=== PATIENT | female | born 1985 | race Caucasian/White ===

== ENCOUNTER 2022-04-09 16:41 | Outpatient (CLI) | payer OTHER, SELFPAY ==
[2022-04-09 17:18] LABS: Basophils Absolute Auto 0.1 K/mm3 (0.0-0.1); Basophils Percent Auto 0.5 % (0.2-1.2); Eosinophils Absolute Auto 0.2 K/mm3 (0-0.3); Eosinophils Percent Auto 1.8 % (0-4.4); Hematocrit 41.6 % (37.0-47.0); Hemoglobin 13.5 g/dL (12.0-15.0); Immature Granulocyte Absolute 0.04 K/mm3 (0.00-0.031); Immature Granulocyte Percent A 0.3 % (0-0.5); Lymphocytes Absolute Auto 2.94 K/mm3 (0.9-3.2); Lymphocytes Percent Auto 25.2 % (18.3-44.2); Mean Corpuscular HGB Conc 32.5 g/dl (32-36); Mean Corpuscular Hemoglobin 29.4 pg (26-34); Mean Corpuscular Volume 90.6 fl (80-100); Mean Platelet Volume 11.1 fl (7.4-10.4); Monocytes Absolute Auto 0.7 K/mm3 (0.1-0.6); Monocytes Percent Auto 5.7 % (2.6-8.5); Neutrophils Absolute Auto 7.8 K/mm3 (1.3-6.7); Neutrophils Percent Auto 66.5 % (45.5-73.1); Platelet Count Result 333 k/mm3 (150-375); Red Blood Count 4.59 M/mm3 (4.2-5.4); Red Cell Distribution Width 12.4 % (11.5-14.5); White Blood Count 11.7 K/mm3 (4.5-10.0)
[2022-04-09 17:30] LABS: Alanine Aminotransferase 21 U/L (6-35); Albumin Level 4.1 g/dL (3.5-5.1); Alkaline Phosphatase 54 U/L (38-126); Anion Gap 10 mmol/L (8-16); Aspartate Amino Transferase 22 U/L (14-36); Bilirubin,Total 0.2 mg/dL (0.2-1.3); Blood Urea Nitrogen 12 mg/dL (7-17); Calcium 8.6 mg/dL (8.4-10.2); Carbon Dioxide 25 mmol/L (22-30); Chloride 105 mmol/L (98-107); Estimated Glomerular Filt Rate > 60; Glucose 101 mg/dL (65-110); Potassium 3.9 mmol/L (3.4-5.0); Sodium 140 mmol/L (137-145)
[2022-04-09 17:56] LABS: Free T4 Free Thyroxine 0.95 ng/mL (0.78-2.19)
== END 2022-04-09 16:42 | disposition home or self-care (01) ==
PROVIDERS: PCP Family Medicine; Visit Provider Nurse Practitioner Gerontology
DX: E04.1 Nontoxic single thyroid nodule (principal); R10.9 Unspecified abdominal pain
CPT/HCPCS: 36415; 80053; 84439; 84443; 84480; 85025

== ENCOUNTER → 2022-04-10 08:57 | Outpatient (CLI) | payer OTHER, SELFPAY ==
--- NOTE | ~2022-04-10 | CT_ITS ---
EXAMINATION: CT abdomen pelvis w con DATE: 04/10/2022 10:00 INDICATION: Mid right abdominal pain for 3 days TECHNIQUE: Computed tomography (CT) of the abdomen and pelvis was performed with 100 CC Omnipaque 350 intravenous contrast. Automated exposure control and iterative reconstruction technique were employe d. Exam dose: 875.40 mGy-cm total exam DLP. COMPARISON: None. FINDINGS: Calcified small middle lobe granuloma, benign. The lung bases are clear of infiltrate or co nsolidation. Normal heart size. No pericardial or pleural effusion. 5 mm hypoattenuating lesion of the lateral segment of the left hepatic lobe, too small to definitivel y characterize, most likely a small cyst benign hamartoma. No other hepatic space-occupying mass lesi on is detected. The gallbladder is unremarkable. No bile duct or pancreatic duct dilatation, pancreat ic mass lesion or calcification. Normal splenic size. Normal morphology of the adrenal glands. No renal mass lesion or urinary tract calculus or hydroureteronephrosis. There is moderate diffuse thickening of the urinary bladder wall; cystitis is not excluded. The uteru s and adnexal areas are unremarkable. Normal caliber of the abdominal aorta. No intraperitoneal or retroperitoneal or pelvic mass lesion or adenopathy is detected, with the exception of several lower quadrant right mesenteric lymph nodes me asuring up to 6.8 x 11 mm, which may be due to mesenteric adenitis. No ascites. Minimal colonic diverticulosis at splenic flexure. No CT evidence of diverticulitis. Normal appendix. No bowel obstruction, bowel wall thickening, pneumatosis or intraperitoneal free air. Small fat-containing umbilical hernia. No suspicious osteolytic or osteoblastic lesions. IMPRESSION: Several up to 6.8 x 11 mm right lower quadrant mesenteric lymph nodes, which may be due to mesenteric adenitis Normal appendix Minimal colonic diverticulosis; no evidence of diverticulitis Diffuse bladder wall thickening; cystitis is not excluded Reviewed, dictated and finalized at [facility]. Reviewed, dictated and finalized at location B. [facility] RADIO IMPRESSION: Several up to 6.8 x 11 mm right lower quadrant mesenteric lymph no martine, which may be due to mesenteric adenitis Normal appendix Minimal colonic diverticulosis; no evidence of diverticulitis Diffuse bladder wall thickening; cystitis is not excluded
== END ==
PROVIDERS: PCP Family Medicine; Visit Provider Nurse Practitioner Gerontology
DX: R10.9 Unspecified abdominal pain (principal)
CPT/HCPCS: 74177; Q9967

== ENCOUNTER 2022-07-24 08:44 | Outpatient (CLI) | payer OTHER, SELFPAY ==
--- NOTE | ~2022-07-24 | US_ITS ---
US thyroid INDICATION: Nontoxic thyroid nodule TECHNIQUE: Real-time sonographic images of the thyroid gland were obtained. COMPARISON: No prior studies for comparison. FINDINGS: The right thyroid lobe measures 4.8 x 1.2 x 1.3 cm. The left thyroid lobe measures 5.4 x 1 .2 x 10.5 cm. There is normal echotexture and echogenicity throughout the thyroid gland. Inferior asp ect of the right thyroid lobe there is a hypoechoic nodule which is solid, hypoechoic, wider than jamie l, smoothly marginated with macrocalcifications measuring 6 x 5 x 5 mm, TR 4. No mass identified in t he left lobe. Normal vascular flow is present. IMPRESSION: 1. Small 6 mm right thyroid nodule, TR 4. No follow-up required. Reviewed, dictated and finalized at location L. [facility] MOLDER
== END 2022-07-24 08:45 | disposition home or self-care (01) ==
PROVIDERS: PCP Family Medicine; Visit Provider Nurse Practitioner Gerontology
DX: E04.1 Nontoxic single thyroid nodule (principal)
CPT/HCPCS: 76536

== ENCOUNTER 2023-03-24 08:03 | Outpatient (CLI) | payer BC, SELFPAY ==
--- NOTE | ~2023-03-24 | XR_ITS ---
XR ankle LT min 3V DATE: 03/24/2023 08:24 INDICATION: Left ankle injury TECHNIQUE: 4 views COMPARISON: None FINDINGS: No fracture or dislocation of the ankle or disruption of the ankle mortise. No periosteal r eaction or bone destruction. IMPRESSION: No fracture or dislocation Reviewed, dictated and finalized at location L. IMPRESSION: No fracture or dislocation
--- NOTE | ~2023-03-24 | XR_ITS ---
XR foot LT min 3V DATE: 03/24/2023 08:24 INDICATION: Left ankle and foot injury TECHNIQUE: 4 views COMPARISON: None FINDINGS: No fracture or dislocation, periosteal reaction or bone destruction. IMPRESSION: Negative Reviewed, dictated and finalized at location L. IMPRESSION: Negative
== END 2023-03-24 08:04 ==
LOC: MICIMG 08:04
PROVIDERS: PCP Physician Assistant; Visit Provider Physician Assistant
DX: S99.912A Unspecified injury of left ankle, initial encounter (principal); M79.672 Pain in left foot
CPT/HCPCS: 73610; 73630

== ENCOUNTER 2024-09-27 06:49 | Outpatient (CLI) | payer BC, SELFPAY ==
--- OUTSIDE RECORDS SUMMARY | 2024-09-27 06:53 | XMS_ITS | Clinical Summary ---
Author Organization [facility] Address [address] [place] [id number] Care Team Providers Care Collections Agent Name Role Phone Sarah Rosales MD Primary Care Provider Social History Tobacco Use Types Packs/Day Years Used Date Smoking Tobacco: Never Assessed Comments Unknown Sex and Gender Information Value Date Recorded Sex Assigned at Not on file Legal Sex Female 4:13 PM CDT Gender Identity Not on file Sexual Orientation Not on file Plan of Treatment Health Maintenance Due Date Last Done Comments Cervical Cancer Screening Pa p Smear (Age 30 to 64) Every 3 Years 1985 Annual Physical 1988 Hepatitis C 10/31/2003 DTaP, Tdap and Td Vaccines ( 1 - Tdap) 2004 Hepatitis B Vaccines (1 of 3 - 19+ 3-dose series) 2004 Cervical Cancer Screening Pa p with HPV Testing (Age 30 to 64) Every 5 Years 10/31/2015 Cervical Cancer Screening with HPV 10/31/2015 COVID-19 Vaccine (2023-2 5 season) 2024 HPV Vaccines Aged Out No longer eligi ble based on patient's age to complete this topic Meningococcal B Vaccine Aged Out No l onger eligible based on patient's age to complete this topic Meningococcal Vaccine Aged Out No ann manuel eligible based on patient's age to complete this topic Pneumococcal Vaccine: Pediat rics (0 to 5 Years) and At-Risk Patients (6 to 49 Years) Aged Out No longer eligible b ased on patient's age to complete this topic RSV Immunizations Under 20 Months Aged Out No longer eligible based on patient's age to complete this topic Care Teams Collections Agent Relationship Specialty Start Date End Date Sarah Rosales MD [address] [id number] [facility] - General 03/05/15
--- OUTSIDE RECORDS SUMMARY | 2024-09-27 06:53 | XMS_ITS | Clinical Summary ---
Author Organization [facility] Care Team Providers Care Senior It Project Manager Name Role Phone Unavailable Primary Care Provider Unavailabl e Social History Tobacco Use Types Packs/Day Years Used Date Smoking Tobacco: Never Assessed Comments Unknown Sex and Gender Information Value Date Recorded Sex Assigned at Not on file Legal Sex Female 1:01 PM CDT Gender Identity Not on file Sexual Orientation Not on file Plan of Treatment Health Maintenance Due Date Last Done Comments Hepatitis C Virus (HCV) Screening 1985 Pap Smear 2006 Cervical Cancer Screening (CCS) 10/31/2015 HPV/Cotest 10/31/2015 Influenza Immunization (#1) 2024 02/06/2014 SARS-COV-2 Immunization ( season) 2024 Respiratory Syncytial Virus (RSV) Immunization (Adult) (1 - 1-dose 75+ series) 2060 Hepatitis B Immunization Completed 999, 04/10/1998, 03/07/1998 DTaP/Tdap/Td Immunization Discontinued 2013, 12/04/1999, 09/30/1990, Additional history exists TdaP Immunization Completed 02/06/2014 Meningococcal Immunization (ACWY) Aged Out No longer eligible based on patient's age to complete this topic Pneumococcal Immunization Combined Aged Out No longer eligible based on patient's age to complete this topic Rotavirus Immunization Aged Out No lo nger eligible based on patient's age to complete this topic
[2024-09-27 07:23] LABS: Basophils Percent Auto 0.5 % (0.2-1.2); Eosinophils Absolute Auto 0.2 K/mm3 (0-0.3); Eosinophils Percent Auto 2.5 % (0-4.4); Hematocrit 44.4 % (37.0-47.0); Hemoglobin 14.3 g/dL (12.0-15.0); Immature Granulocyte Absolute 0.02 K/mm3 (0.00-0.031); Immature Granulocyte Percent A 0.2 % (0-0.5); Lymphocytes Absolute Auto 2.09 K/mm3 (0.9-3.2); Lymphocytes Percent Auto 24.9 % (18.3-44.2); Mean Corpuscular HGB Conc 32.2 g/dl (32-36); Mean Corpuscular Hemoglobin 28.7 pg (26-34); Mean Platelet Volume 11.4 fl (7.4-10.4); Monocytes Absolute Auto 0.4 K/mm3 (0.1-0.6); Monocytes Percent Auto 4.8 % (2.6-8.5); Neutrophils Absolute Auto 5.7 K/mm3 (1.3-6.7); Neutrophils Percent Auto 67.1 % (45.5-73.1); Platelet Count Result 299 k/mm3 (150-375); Red Blood Count 4.99 M/mm3 (4.2-5.4); Red Cell Distribution Width 12.8 % (11.5-14.5); White Blood Count 8.4 K/mm3 (4.5-10.0)
[2024-09-27 08:02] LABS: Iron 93 ug/dL (37-170); Percent Iron Saturation 31 % (20-50)
[2024-09-27 08:09] LABS: Thyroid Stimulating Hormone Reflex 0.865 uIU/mL (0.465-4.68)
[2024-09-28 01:58] LABS: Progesterone 0.6 ng/mL
[2024-09-28 08:43] LABS: DHEA-Sulfate 188 mcg/dL (19-237); LH 5.9 mIU/mL; Prolactin 13.9 ng/mL
== END 2024-09-27 06:50 | disposition home or self-care (01) ==
LOC: ANHLAB 06:51
PROVIDERS: PCP Family Medicine; Visit Provider Obstetrics & Gynecology
DX: N93.9 Abnormal uterine and vaginal bleeding, unspecified (principal); R63.5 Abnormal weight gain
CPT/HCPCS: 36415; 82627; 82670; 82728; 83001; 83002; 83498; 83525; 83527; 83540; 83550; 84144; 84146; 84402; 84403; 84443; 85025